=== PATIENT | male | born 1950 | race Caucasian/White ===

== ENCOUNTER 2018-03-03 07:35 | Day surgery (SDC) | payer BC, MEDICARE ==
[2018-03-03] MEDS ORDERED: Lactated Ringers 1,000 ML IV SCH (08:15)
[2018-03-03] MEDS ORDERED: Midazolam 1 MG/ML 2 ML SDV ONE (09:52)
[2018-03-03] MEDS ORDERED: fentaNYL 100 MCG/2 ML SDV ONE (09:52)
[2018-03-03] MEDS ORDERED: Propofol 200 MG/20 ML SDV ONE (09:52)
[2018-03-03 11:41] VITALS: BP 116/70
--- NOTE | 2018-03-03 14:37 | OR ---
DATE OF PROCEDURE: 03/03/2018 PREOPERATIVE DIAGNOSES: 1. New-onset constipation. 2. Left lower quadrant abdominal pain. 3. History of adenomas, including an endoscopically unresectable adenoma, requiring sigmoid resection in 2013. POSTOPERATIVE DIAGNOSES: 1. New-onset constipation. 2. Left lower quadrant abdominal pain. 3. History of adenomas, including an endoscopically unresectable adenoma, requiring sigmoid resection in 2013. 4. Brewer-diverticulosis. 5. Small right colon polyp. 6. Area of inflammation at 20 cm from the anal verge. PROCEDURES: 1. Colonoscopy to the cecum with biopsy resection of small right colon polyp. 2. Biopsy of inflamed area, 20 cm from the anal verge. SURGEON: Romaine Craig MD ANESTHESIA: IV anesthesia with monitored anesthesia care. INDICATION: This 67-year-old white male is referred for a colonoscopy because of new-onset constipation and left lower quadrant abdominal pain. He has a history of adenomatous polyps. One, despite multiple colonoscopies, could not be removed, so it was removed with a sigmoid resection in 2013. I counseled him for a colonoscopy with possible biopsy and/or polypectomy, including risks and alternatives, and he gave his informed consent to proceed. DESCRIPTION OF PROCEDURE: The patient was placed in the left lateral decubitus position. IV anesthesia was administered by the Anesthesia Service. Time-out was held. A rectal exam was performed, which was unremarkable. The flexible video Olympus colonoscope was introduced through his anus, up his rectum, and out his colon all the way to the cecum. En route, we saw both left and right-sided diverticula. We also encountered an area of inflammation distal to the anastomosis. Additionally, the anastomosis appeared widely patent. Also en route to the cecum, we saw a small right colon polyp, which was removed with several bites of the biopsy forceps. Once the cecum was reached, the scope was slowly withdrawn, examining the mucosa throughout. No additional mucosal abnormalities were noted. We did biopsy the area of inflammation at 20 cm from the anal verge. The scope was retroflexed in the rectum with the distal rectum appearing unremarkable. The scope was straightened and removed. He tolerated the procedure well. Romaine Craig MD /[id number]
== END 2018-03-03 11:56 | disposition home or self-care (01) ==
LOC: JP.SDS 07:35
PROVIDERS: ATTEND Surgery
DX: K59.00 Constipation, unspecified (principal); R10.32 Left lower quadrant pain; K57.30 Diverticulosis of large intestine without perforation or abscess without bleeding; D12.2 Benign neoplasm of ascending colon; K63.5 Polyp of colon; K21.9 Gastro-esophageal reflux disease without esophagitis; Z86.010 Personal history of colon polyps; Z88.5 Allergy status to narcotic agent; Z90.49 Acquired absence of other specified parts of digestive tract
CPT/HCPCS: 45380; J2250; J2704; J3010; J7120; 88305